=== PATIENT | female | born 1970 | race Caucasian/White ===

== ENCOUNTER 2017-12-29 15:51 | Emergency (ER) | payer OTHER ==
[~2017-12-29] VITALS: Ht 167.6 cm; Wt 96.1 kg
[~2017-12-29 15:51] MED LIST: BACTRIM,SEPT1 TABLET PO; BUPROPION HCL100 MG PO; BUPROPION HCL75 MG PO; CELEXA40 MG PO; CLONAZEPAM0.5 MG PO; CYANOCOBALAM1000 MCG PO; DELTASONE20 M1 PO; FLEXERIL10 MG PO; FLOVENT 44120 INHALA; FLOVENT DISKUS1 DIS2 IH; GABAPENTIN300 MG; GLUCOPHAGE500 MG PO; HYDROCODON-ACE1 EAC7 PO; IBUPROFEN600 MG PO; IMITREX100 MG PO; INDOCIN25 MG PO; LEXAPRO20 MG PO; LIDODERM 5% P1 PATCH TD; LORCET 5-325 M1 EACH PO; MELOXICAM15 MG; METAXALL800 MG PO; METFORMIN HCL500 MG; METHOCARBAMOL500 MG; METRONIDAZOLE500 MG PO; MOTRIN600 MG PO; NAPROSYN500 MG PO; NORCO 5/3251 TABLET PO; NORCO 7.5/321 TABLET PO; PERCOCET 5/31 TABLET PO; PREDNISONE10 M1 PO; PREDNISONE20 MG PO; PROAIR HFA8.5 GM IH; SILVER SULFADIA50 GM TP; TOPAMAX50 MG PO; TOPIRAMATE25 MG PO; TRAMADOL HCL50 MG PO; TROSPIUM CHLORI20 MG; ULTRAM50 MG PO; VALIUM5 MG PO; VITAMIN D2000 UNI1 PO; WELLBUTRIN XL300 MG PO; ZANTAC150 MG PO
[2017-12-29 16:37] LABS: HEMATOCRIT 45.8 % (36.0-46.0); HEMOGLOBIN 15.9 G/DL (11.9-15.5); MCHC 34.7 G/DL (30.0-36.0); MCV 86.4 FL (83-99); PLATELET COUNT 168 K/uL (156-360); RBC DIS.WIDTH-CV 12.6 % (11.8-14.6); RBC DIS.WIDTH-SD 39.7 % (39-53); WHITE BLOOD COUNT 9.1 K/uL (4.1-10.2)
[2017-12-29 16:57] LABS: ALBUMIN 4.4 g/dL (3.2-4.8); CHLORIDE 107 mEq/L (99-109); SODIUM 144 mEq/L (136-147)
[2017-12-29 16:59] LABS: GLUCOSE 99 mg/dL (70-99)
[2017-12-29 17:00] LABS: TOTAL PROTEIN 7.3 g/dL (6.4-8.3)
[2017-12-29 17:01] LABS: TOTAL BILIRUBIN 0.8 mg/dL (0.0-1.0)
[2017-12-29 17:03] LABS: ALKALINE PHOSPHATASE 90 IU/L (3-129); CREATININE 0.8 mg/dL (0.6-1.3); GFR ESTIMATE (CALCULATED) > 59 mL/min/
[2017-12-29 17:04] LABS: UREA NITROGEN (BUN) 10 mg/dL (9-23)
[2017-12-29 17:05] LABS: AST (GOT) 28 IU/L (2-34)
[2017-12-29 17:06] LABS: ALT (GPT) 41 IU/L (3-49); LIPASE 15 U/L (1.0-51.0)
[2017-12-29 17:14] LABS: QUANTITATIVE HCG 9.4 MIU/ML
[2017-12-29 18:45] LABS: APPEARANCE CLEAR ((CLEAR)); BILIRUBIN NEGATIVE; BLOOD NEGATIVE; COLOR YELLOW ((YELLOW)); GLUCOSE (STRIP) NEGATIVE; KETONES NEGATIVE; LEUKOCYTES NEGATIVE; NITRITE NEGATIVE; PROTEIN (STRIP) NEGATIVE; SPECIFIC GRAVITY 1.012 (1.000-1.030); UCUL ADDED? NO; UROBILINOGEN 0.2 MG/DL (0.2-1.0)
[2017-12-29] MEDS ORDERED: ZOFRAN ODT4 MG PO (19:13)
[2017-12-29] MEDS ORDERED: MOTRIN600 MG PO (19:13)
[2017-12-29 20:02] VITALS: BP 157/94
== END 2017-12-29 20:04 | disposition home or self-care (01) ==
LOC: EME 15:51
PROVIDERS: Physician Assistant Medical
DX: R51 Headache (principal); E11.9 Type 2 diabetes mellitus without complications; I25.2 Old myocardial infarction; F32.9 Major depressive disorder, single episode, unspecified; K21.9 Gastro-esophageal reflux disease without esophagitis; F41.9 Anxiety disorder, unspecified; Z86.19 Personal history of other infectious and parasitic diseases
CPT/HCPCS: 80053; 81003; 83690; 84702; 85027; 99281; 99284; J1885